=== PATIENT | male | born 1970 | race Two or more races ===

== ENCOUNTER 2020-01-11 16:29 | Emergency (ER) | payer SELFPAY ==
[~2020-01-11] VITALS: Ht 165.1 cm; Wt 65.8 kg
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
--- NOTE | 2020-01-11 17:48 | NUR ---
SAIRA CHE AT BEDSIDE FOR EVAL.
--- NOTE | 2020-01-11 19:08 | NUR ---
PT RESTING COMFORTABLY. PLACED ON MONITOR AND PULSE OX. VSS.
--- NOTE | 2020-01-11 22:17 | NUR ---
Patient discharged to home in stable condition. Written and verbal after care instructions given. Patient verbalizes understanding of instruction. Pt ambulated to the restroom then out of E.D.
[2020-01-11 22:18] VITALS: BP 121/72
== END 2020-01-11 22:18 | disposition home or self-care (01) ==
LOC: ER 16:33
DX: F10.229 Alcohol dependence with intoxication, unspecified (principal); Y90.9 Presence of alcohol in blood, level not specified

== ENCOUNTER 2020-01-12 14:26 | Emergency (ER) | payer SELFPAY ==
[~2020-01-12] VITALS: Ht 165.1 cm; Wt 65.8 kg
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
--- NOTE | 2020-01-12 15:03 | NUR ---
DR SANDY AT BEDSIDE FOR EVAL.
--- NOTE | 2020-01-12 16:32 | NUR ---
PATIENT IN BED ASLEEP, EASILY AROUSABLE BY VOICE. HOOKED TO MONITOR. WILL CONTINUE TO MONITOR ACCORDINGLY
--- NOTE | 2020-01-12 18:39 | NUR ---
REQUESTED CLOTHING FROM SECURITY
--- NOTE | 2020-01-12 18:39 | NUR ---
PATIENT ABLE TO AMBULATE W STEADY GAIT.
--- NOTE | 2020-01-12 18:49 | NUR ---
Patient given written and verbal discharge instructions. Patient verbalizes understanding of instructions. Patient is ambulatory with steady gait. Refuses offer of prison placement. Patient given list of available shelters in surrounding area. patient rpovided with [facility]ia, discharged with proper clothing, patient had no belongings when brought to the ER, name band removed.
[2020-01-12 18:52] VITALS: BP 122/69
== END 2020-01-12 18:52 | disposition home or self-care (01) ==
LOC: ER 14:28
DX: S50.312A Abrasion of left elbow, initial encounter (principal); F10.129 Alcohol abuse with intoxication, unspecified; X58.XXXA Exposure to other specified factors, initial encounter; Y93.89 Activity, other specified; Y92.89 Other specified places as the place of occurrence of the external cause; Y99.8 Other external cause status; Y90.9 Presence of alcohol in blood, level not specified
CPT/HCPCS: 73080-TC